=== PATIENT | male | born 1980 | race Caucasian/White ===

== ENCOUNTER 2018-11-20 17:06 | Emergency (ER) | payer OTHER ==
[2018-11-20] MEDS ORDERED: Lactated Ringers 1,000 ML IV ONE ×2 (17:12→17:20)
[2018-11-20 17:19] LABS: BASOPHIL % 0.3 % (0.0-0.4); Basophil (Absolute #) 0.04; Eosinophil % 2.4 %; Eosinophil (Absolute #) 0.31; Granulocyte Absolute (ANC) 5.46; Granulocytes % 42.8 %; Hematocrit 46.3 %; Hemoglobin 15.4 gm/dl; Lymphocyte (Absolute #) 5.25; Mean Cell Volume 92.4 fl; Mean Corpuscular Hemoglobin 30.7 pg; Mean Corpuscular Hgb Concent. 33.3 g/dl; Mean Platelet Volume 9.6 fl; Monocyte (Absolute #) 1.73; Monocytes % 13.5 % (0.0-12.0); Platelet Count 310 K/mm3; Red Blood Count 5.01 M/mm3; Red Cell Distribution Width 13.5 %; White Blood Count 12.8 K/mm3
[2018-11-20 17:26] LABS: INR 1.14 (0.8-3.0); PROTIME 13.3 SECONDS (8.83-12.87)
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
[2018-11-20 17:29] LABS: PTT 24.6 SECONDS (24.1-36.1)
[2018-11-20 17:30] LABS: ALBUMIN 4.5 g/dL (3.5-5.0); ALKALINE PHOSPHATASE 72 U/L (38-126); BLOOD UREA NITROGEN 8 mg/dL (9-20); CHLORIDE 108 mmol/L (98-107); Calcium 9.2 mg/dL (8.4-10.2); Carbon Dioxide 18 mmol/L (22-30); Creatinine 1 0.92 mg/dL (0.66-1.25); Glucose 102 mg/dL (74-106); Potassium 3.6 mmol/L (3.5-5.1); SGOT/AST 50 U/L (17-59); SGPT/ALT 91 U/L (0-50); SODIUM 141 mmol/L (137-145); Total Protein 7.9 g/dL (6.3-8.2)
[2018-11-20 17:52] LABS: ABO TYPING O; Antibody Screen NEGATIVE (NEGATIVE); RH TYPING POSITIVE
[2018-11-20 17:54] VITALS: BP 108/73; PULSE 108; O2SAT 95
== END 2018-11-20 17:35 | disposition short-term general hospital (02) ==
LOC: ED 17:06
DX: S85.001A Unspecified injury of popliteal artery, right leg, initial encounter (principal); V59.9XXA Occupant (driver) (passenger) of pick-up truck or van injured in unspecified traffic accident, initial encounter; D66 Hereditary factor VIII deficiency
CPT/HCPCS: 36000; 36415; 80053; 85025; 85610; 85730; 86850; 86900; 86901; 99284; 99291

== ENCOUNTER 2019-02-09 18:32 | Emergency (ER) | payer OTHER ==
[2019-02-09 19:40] LABS: Granulocyte Absolute (ANC) 6.84 (1.4-6.9); Hematocrit 41.3 % (42-50); Hemoglobin 12.6 gm/dl (12.5-18.0); Mean Corpuscular Hemoglobin 25.9 pg (26-32); Mean Corpuscular Hgb Concent. 30.5 g/dl (32-36); Mean Platelet Volume 8.6 fl (6-9.5); Platelet Count 687 K/mm3 (150-450); Red Blood Count 4.86 M/mm3 (4.1-5.6); Red Cell Distribution Width 17.2 % (11.5-14.0); White Blood Count 12.6 K/mm3 (4.0-10.5)
[2019-02-09 19:51] LABS: ALBUMIN 4.2 g/dL (3.5-5.0); ALKALINE PHOSPHATASE 136 U/L (38-126); BLOOD UREA NITROGEN 12 mg/dL (9-20); CHLORIDE 104 mmol/L (98-107); Calcium 9.7 mg/dL (8.4-10.2); Carbon Dioxide 27 mmol/L (22-30); Creatinine 1 0.62 mg/dL (0.66-1.25); Glucose 96 mg/dL (74-106); Potassium 4.1 mmol/L (3.5-5.1); SGOT/AST 22 U/L (17-59); SGPT/ALT 41 U/L (0-50); SODIUM 141 mmol/L (137-145); Total Protein 8.3 g/dL (6.3-8.2)
--- NOTE | 2019-02-09 20:21 | ERPHSYRPT ---
- History of Present Illness Time Seen by Provider: 02/09/19 20:14 Source: patient Exam Limitations: no limitations Patient Subjective Stated Complaint: STATES HAS HAD A PICC LINE FOR FACTOR 8 INFUSIONS AND OVER THE PAST COUPLE OF DAYS HAS BEEN GETTING COLD CHILLS. STATES HE WENT TO [facility] TODAY AND THEY PULLED HIS PICC LINE OUT THINKING HE MIGHT HAVE INFECTION IN THE LINE. IS HERE TO GET BLOOD WORK DONE AND CHECK FOR INFECTION. Triage Nursing Assessment: AMBULATED TO ROOM PER SELF. SKIN W/D, COLOR NORMAL. HAS SMALL WOUND WHERE PICC WAS ON LEFT UPPER ARM. WOUND IS CLEAN AND DRY. DENIES ANY CHILLS AT THIS TIME. Physician History: 38-year-old white male with history of hemophilia who had a PICC line inserted secondary for infusion of factor VIII. States that he's been having symptoms like he is having chills for the past few days she apparently went to see his physician on Wednesday had some blood work drawn he apparently went to see Dr. Goldberg on Wednesday and had some blood work done and was seen yesterday by his physician in [place] and had blood work done. He states that he was contacted by his physician in [place] and told to proceed to the emergency room and have it checked for infection. He apparently did have his PICC line removed. Patient states he has been having occasional chills other that he is not feeling any distress. Patient does have a history of a sever right popliteal artery in the past which was repaired in 2019 he states he is not having any erythema or drainage from the area. Past medical history includes hemophilia. Past surgical history includes right popliteal artery repair. Timing/Duration: other (symptoms for several days) Severity: mild Modifying Factors: Improves With: nothing Associated Symptoms: chills, No nausea, No vomiting, No abdominal pain, No shortness of breath, No heartburn, No diaphoresis, No cough, No chest pain, No fever, No headaches, No loss of appetite, No malaise, No rash, No syncope, No seizure, No weakness Allergies/Adverse Reactions: Penicillins Allergy (Verified 02/09/19 19:06) Home Medications: Gabapentin 600 mg PO TID 02/09/19 [History] Non-Formulary Drug [Non-Formulary Item] 1 mg IJ UD 02/09/19 [History] Hx Tetanus, Diphtheria Vaccination/Date Given: Yes Hx Influenza Vaccination/Date Given: No Hx Pneumococcal Vaccination/Date Given: No - Review of Systems Constitutional: Chills, No Fever, No Fatigue, No Lethargy, No Malaise, No Night Sweats, No Weakness, No Weight Loss Eyes: No Symptoms Ears, Nose, & Throat: No Symptoms Respiratory: No Cough, No Dyspnea Cardiac: No Chest Pain, No Edema, No Syncope Abdominal/Gastrointestinal: No Abdominal Pain, No Nausea, No Vomiting, No Diarrhea Genitourinary Symptoms: No Dysuria Musculoskeletal: No Back Pain, No Neck Pain Skin: No Rash Neurological: No Dizziness, No Focal Weakness, No Sensory Changes Psychological: No Symptoms Endocrine: No Symptoms All Other Systems: Reviewed and Negative - Past Medical History Pertinent Past Medical History: Yes Other Medical History: hemophillia - Past Surgical History Past Surgical History: Yes Other Surgical History: RIGHT POPLITEAL SEVERED AND REPAIRED 2018 - Social History Smoking Status: Former smoker Exposure to second hand smoke: No Drug Use: none Patient Lives Alone: No - Nursing Vital Signs Nursing Vital Signs: Initial Vital Signs Temperature 98.5 F 02/09/19 18:45 Pulse Rate 110 H 02/09/19 18:45 Respiratory Rate 16 02/09/19 18:45 Blood Pressure 130/98 02/09/19 18:45 O2 Sat by Pulse Oximetry 98 02/09/19 18:45 Pain Scale Pain Intensity 0 - Physical Exam General Appearance: no apparent distress, alert Eye Exam: PERRL/EOMI, eyes nml inspection Ears, Nose, Throat Exam: normal ENT inspection, TMs normal, pharynx normal, moist mucous membranes Neck Exam: normal inspection, non-tender, supple, full range of motion Respiratory Exam: normal breath sounds, lungs clear, No respiratory distress Cardiovascular Exam: regular rate/rhythm, normal heart sounds, normal peripheral pulses, capillary refill <2 sec Gastrointestinal/Abdomen Exam: soft, normal bowel sounds, No tenderness, No mass Back Exam: normal inspection, normal range of motion, No CVA tenderness, No vertebral tenderness Extremity Exam: other (dressing in placeright lower extremity no drainage) Neurologic Exam: alert, oriented x 3, cooperative, screw machine tender II-XII nml as tested, normal mood/affect, nml cerebellar function, nml station & gait, sensation nml, No motor deficits Skin Exam: normal color, warm, dry, No rash Lymphatic Exam: No adenopathy SpO2 Interpretation: normal (98%) SpO2: 98 - Course Nursing assessment & vital signs reviewed: Yes Ordered Tests: Active Orders 24 hr Category Date Time Status IV Insertion STAT Care 02/09/19 19:11 Active BC [BLOOD CULTURE] Stat Lab 02/09/19 19:45 Received CBC W DIFF Stat Lab 02/09/19 19:00 Completed CMP Stat Lab 02/09/19 19:00 Completed Lactic Acid Stat Lab 02/09/19 19:32 Completed Manual Differential NC Stat Lab 02/09/19 19:00 Completed UA W/RFX UR CULTURE Stat Lab 02/09/19 20:50 Completed Medication Summary Generic Name Dose Route Start Last Admin Trade Name Freq PRN Reason Stop Dose Admin Vancomycin HCl 250 mls @ 250 mls/hr 02/09/19 20:45 02/09/19 21:22 Vancomycin 1gm/ Ns 250ml IV 02/09/19 22:44 167 mls/hr Q1H KRISTEL Administration Discontinued Medications Generic Name Dose Route Start Last Admin Trade Name Freq PRN Reason Stop Dose Admin Ceftriaxone Sodium/Dextrose 2 g in 50 mls @ 100 mls/hr 02/09/19 20:45 21:01 Rocephin 2 Gm-D5w 50ml Bag IV 02/09/19 21:14 100 ml/hr STAT STA 100 mls/hr Administration Ceftriaxone Sodium/Dextrose Confirm 02/09/19 20:48 Rocephin 2 Gm-D5w 50ml Bag Administered 02/09/19 20:49 Dose 2 g in 50 mls @ ud IV .K-MED ONE Lab/Rad Data: Laboratory Result Diagrams 02/09/19 19:00 02/09/19 19:00 Laboratory Results 02/09/19 02/09/19 02/09/19 Range/Units 20:50 19:32 19:00 WBC (4.0-10.5) K/mm3 RBC (4.1-5.6) M/mm3 Hgb (12.5-18.0) gm/dl Hct (42-50) % MCV (78-100) fl MCH (26-32) pg MCHC (32-36) g/dl RDW (11.5-14.0) % Plt Count (150-450) K/mm3 MPV (6-9.5) fl Absolute Granulocytes (1.4-6.9) Segmented Neutrophils (36.-66.) % Band Neutrophils (0.0-2.0) % Lymphocytes (Manual) (24-44) % Monocytes (Manual) (0.0-12.0) % Eosinophils (Manual) (0.00-3.0) % Platelet Estimate (NORMAL) RBC Morphology Sodium 141 (137-145) mmol/L Potassium 4.1 (3.5-5.1) mmol/L Chloride 104 (98-107) mmol/L Carbon Dioxide 27 (22-30) mmol/L Anion Gap 14.0 (5-15) MEQ/L BUN 12 (9-20) mg/dL Creatinine 0.62 L (0.66-1.25) mg/dL Estimated GFR > 60.0 ML/MIN Glucose 96 (74-106) mg/dL Lactic Acid 1.4 (0.4-2.0) Calcium 9.7 (8.4-10.2) mg/dL Total Bilirubin 0.30 (0.2-1.3) mg/dL AST 22 (17-59) U/L ALT 41 (0-50) U/L Alkaline Phosphatase 136 H (38-126) U/L Serum Total Protein 8.3 H (6.3-8.2) g/dL Albumin 4.2 (3.5-5.0) g/dL Urine Color YELLOW (YELLOW) Urine Appearance CLOUDY (CLEAR) Urine pH 7.0 (5-6) Ur Specific [place] 1.013 (1.005-1.025) Urine Protein NEGATIVE (Negative) Urine Ketones NEGATIVE (NEGATIVE) Urine Blood NEGATIVE (0-5) Shun/ul Urine Nitrite NEGATIVE (NEGATIVE) Urine Bilirubin NEGATIVE (NEGATIVE) Urine Urobilinogen NEGATIVE (0-1) mg/dL Ur Leukocyte Esterase NEGATIVE (NEGATIVE) Urine WBC (Auto) NONE SEEN (0-5) /HPF Urine RBC (Auto) NONE SEEN (0-2) /HPF U Epithel Cells (Auto) NONE (FEW) /HPF Urine Bacteria (Auto) NONE SEEN (NEGATIVE) /HPF Amorphous Crystals MODERATE (NEGATIVE) /HPF Urine Mucus (Auto) SLIGHT (NEGATIVE) /HPF Urine Culture Reflexed NO (NO) Urine Glucose NEGATIVE (NEGATIVE) mg/dL 02/09/19 Range/Units 19:00 WBC 12.6 H (4.0-10.5) K/mm3 RBC 4.86 (4.1-5.6) M/mm3 Hgb 12.6 (12.5-18.0) gm/dl Hct 41.3 L (42-50) % MCV 85.0 (78-100) fl MCH 25.9 L (26-32) pg MCHC 30.5 L (32-36) g/dl RDW 17.2 H (11.5-14.0) % Plt Count 687 H (150-450) K/mm3 MPV 8.6 (6-9.5) fl Absolute Granulocytes 6.84 (1.4-6.9) Segmented Neutrophils 55 (36.-66.) % Band Neutrophils 2 (0.0-2.0) % Lymphocytes (Manual) 25 (24-44) % Monocytes (Manual) 15 H (0.0-12.0) % Eosinophils (Manual) 3 (0.00-3.0) % Platelet Estimate NORMAL (NORMAL) RBC Morphology NORMAL Sodium (137-145) mmol/L Potassium (3.5-5.1) mmol/L Chloride (98-107) mmol/L Carbon Dioxide (22-30) mmol/L Anion Gap (5-15) MEQ/L BUN (9-20) mg/dL Creatinine (0.66-1.25) mg/dL Estimated GFR ML/MIN Glucose (74-106) mg/dL Lactic Acid (0.4-2.0) Calcium (8.4-10.2) mg/dL Total Bilirubin (0.2-1.3) mg/dL AST (17-59) U/L ALT (0-50) U/L Alkaline Phosphatase (38-126) U/L Serum Total Protein (6.3-8.2) g/dL Albumin (3.5-5.0) g/dL Urine Color (YELLOW) Urine Appearance (CLEAR) Urine pH (5-6) Ur Specific [place] (1.005-1.025) Urine Protein (Negative) Urine Ketones (NEGATIVE) Urine Blood (0-5) Shun/ul Urine Nitrite (NEGATIVE) Urine Bilirubin (NEGATIVE) Urine Urobilinogen (0-1) mg/dL Ur Leukocyte Esterase (NEGATIVE) Urine WBC (Auto) (0-5) /HPF Urine RBC (Auto) (0-2) /HPF U Epithel Cells (Auto) (FEW) /HPF Urine Bacteria (Auto) (NEGATIVE) /HPF Amorphous Crystals (NEGATIVE) /HPF Urine Mucus (Auto) (NEGATIVE) /HPF Urine Culture Reflexed (NO) Urine Glucose (NEGATIVE) mg/dL - Progress Progress: improved Progress Note: 02/09/19 20:[address] Gerardo, patient's oncologist from [place] she related that the patient had culture drawn yesterday which showed preliminarily Gram- positive clusters in both cultures (IV and PICC line) As well as gram-negative rods in the PICC line. She requested that we give the patient 1750 mg of vancomycin IV. Also will give patient Rocephin 2 g IV. She states that she will contact the patient tomorrow for followup. Patient is really in no acute distress. Urine is pending on the patient's patient's lactate is within normal limits Patient white count 12.6 hemoglobin 12.6 hematocrit 41.3 platelets 687 Patient's lactate 1.4 Patient's chemistry sodium 141 potassium 4.1 chloride 104 bicarbonate 27 BUN 12 creatinine 0.62 glucose 96 the patient had his wound dressing change today by home health care he states there is no erythema will reexamine will plan on discharging the patient and having him followup with Dr. Gerardo.. 02/09/19 21:12 Patient's wounds are examined on the patient's right leg and right thigh. They appear to be healing well there is no erythema or drainage. - Departure Departure Disposition: Home Clinical Impression: Positive blood cultures Condition: Fair Critical Care Time: No Referrals: DOCTOR,NO FAMILY [Primary Care Provider] - Additional Instructions: Return home. Medications as prescribed by your family Dr./[facility] strategy. Followup with your family doctor/[facility] strategy. Return for acute distress severe symptoms or for any problems.
[2019-02-09 20:27] LABS: BAND 2 % (0.0-2.0); Eosinophil 3 % (0.00-3.0); Lymphocytes 25 % (24-44); Monocyte 15 % (0.0-12.0); Neutrophils 55 % (36.-66.); Platelet Estimate NORMAL (NORMAL); Total Cells Counted 100
[2019-02-09] MEDS ORDERED: ROCEPHIN 2 Gm-D5w 50ML BAG** 2 G/50 ML IVPB IV STA (20:45)
[2019-02-09] MEDS ORDERED: ROCEPHIN 2 Gm-D5w 50ML BAG** 2 G/50 ML IVPB IV ONE (20:48)
[2019-02-09 20:59] LABS: Amourphous Crystal MODERATE /HPF (NEGATIVE); Appearance CLOUDY (CLEAR); Bilirubin NEGATIVE (NEGATIVE); Blood NEGATIVE Ery/ul (0-5); Glucose NEGATIVE (NEGATIVE); Ketones NEGATIVE (NEGATIVE); Leukocyte Esterase NEGATIVE (NEGATIVE); Mucus SLIGHT /HPF (NEGATIVE); Nitrite NEGATIVE (NEGATIVE); Protein,Urine Dip NEGATIVE (Negative); RBC NONE SEEN /HPF (0-2); Specific Gravity 1.013 (1.005-1.025); Urobilinogen NEGATIVE mg/dL (0-1); WBC NONE SEEN /HPF (0-5)
[2019-02-09 21:00] LABS: Bacteria NONE SEEN /HPF (NEGATIVE)
[2019-02-09 21:13] VITALS: O2SAT 98
[2019-02-09] MEDS ORDERED: Vancomycin 1GM/ Ns 250ML*** 250 ML IV ONE ×2 (21:16→22:52)
[2019-02-09] MEDS: Vancomycin 1GM/ Ns 250ML*** 250 ML IV SCH ×2 (21:22→22:53)
[2019-02-10 00:14] VITALS: BP 131/90; PULSE 78
== END 2019-02-10 00:14 | disposition home or self-care (01) ==
LOC: ED 18:32
DX: R78.81 Bacteremia (principal); R68.83 Chills (without fever); D66 Hereditary factor VIII deficiency
CPT/HCPCS: 36000; 36415; 80053; 81001; 83605; 85025; 87040; 96365; 96367; 96368; 99284; J0696; J3370